=== PATIENT | female | born 1990 | race Hispanic/Latino ===

== ENCOUNTER 2022-06-05 04:56 | Inpatient (IN) | payer OTHER ==
[2022-06-05] MEDS ORDERED: Acetaminophen 500 MG TAB PO PRN (05:26)
[2022-06-05] MEDS ORDERED: Tranexamic Acid 1,000 MG/10 ML VIAL IVP PRN (05:26)
[2022-06-05] MEDS ORDERED: Methylergonovine 0.2 MG/ML VIAL IM PRN ×2 (05:26→16:05)
[2022-06-05] MEDS ORDERED: Carboprost 250 MCG/ML AMP IM PRN (05:26)
[2022-06-05] MEDS ORDERED: Misoprostol 200 MCG TAB PR PRN ×2 (05:26→16:05)
[2022-06-05] MEDS ORDERED: Promethazine HCl 25 MG/ML VIAL IM PRN ×2 (05:26→06:37)
[2022-06-05] MEDS ORDERED: Ondansetron PF 4 MG/2 ML Vial IVP PRN ×3 (05:26→16:05)
[2022-06-05] MEDS ORDERED: Lidocaine 1% (PF) 30 ML VIAL SC PRN (05:26)
[2022-06-05] MEDS ORDERED: hydrALAZINE 20 MG/ML VIAL SLOW IVP PRN ×2 (05:26→16:05)
[2022-06-05] MEDS ORDERED: Fentanyl 2 mcg/Bup 0.1% Cadd 100 ML ONE (05:50)
[2022-06-05 05:55] LABS: Hemoglobin 11.1 g/dL (12.0-15.5); Mean Corpuscular Hemoglobin 25.6 pg (27.0-33.0); Mean Platelet Volume 12.3 fl (7.4-10.4); Platelet Count 175 10x3/uL (150-450); RBC Distribution Width 14.1 % (11.5-14.5); Red Blood Cell (RBC) Count 4.34 10x6/uL (3.90-5.03); White Blood Cell (WBC) Count 8.8 10x3/uL (3.5-10.5)
[2022-06-05] MEDS ORDERED: Lactated Ringer's 1,000 ML IV SCH (06:00)
[2022-06-05] MEDS ORDERED: NS w/ Oxytocin 30 units 500 ML IV SCH ×2 (06:00→16:05)
[2022-06-05 06:06] VITALS: BMI 38.3
[2022-06-05 06:09] LABS: ALT (SGPT) 10 U/L (8-55); AST (SGOT) 12 U/L (5-34); Albumin 3.4 g/dL (3.5-5.0); Alkaline Phosphatase 210 U/L (40-110); Anion Gap 17 mmol/L (10-20); BUN (Urea Nitrogen) 13 mg/dL (7.0-18.7); Bilirubin, Total 0.3 mg/dL (0.2-1.2); Calc. Creatinine Clearance 156 mL/min (70-130); Calcium 8.8 mg/dL (7.8-10.44); Carbon Dioxide 17 mmol/L (22-29); Chloride 108 mmol/L (98-107); Estimated GFR 109; Globulin 2.9 g/dL (2.4-3.5); Glucose 98 mg/dL (70-105); Protein, Total 6.3 g/dL (6.0-8.3); Sodium 138 mmol/L (136-145)
[2022-06-05 06:26] LABS: Syphilis Antibody Nonreactive (Nonreactive); Syphilis Antibody Index 0.03 S/CO (<1.00 Non-Reactive)
[2022-06-05 06:27] LABS: HBSAg Index 0.14 S/CO (0-0.99); Hep B Surf Ag - L&D Non-Reactive S/CO (NonReactive)
[2022-06-05] MEDS ORDERED: diphenhydrAMINE 50 MG/ML VIAL IVP PRN (06:37)
[2022-06-05] MEDS ORDERED: Lactated Ringer's 500 ML IV PRN (06:37)
[2022-06-05] MEDS ORDERED: ePHEDrine Sulfate 50 MG/10 ML VIAL SLOW IVP PRN (06:37)
[2022-06-05] MEDS ORDERED: Naloxone HCl 0.4 mg/ml Vial IVP PRN ×2 (06:37)
[2022-06-05] MEDS ORDERED: Acetaminophen 325 MG TAB PO PRN (06:37)
[2022-06-05] MEDS ORDERED: Moisturizing Cream (Eucerin) 113 GM JAR TOP PRN (06:37)
[2022-06-05] MEDS ORDERED: Communication Order-Pharmacy FS SCH (06:45)
[2022-06-05] MEDS ORDERED: Fentanyl 2 mcg/Bupivacaine 0.1% Cassette 100 ML EPIDURAL SCH (06:45)
[2022-06-05] MEDS ORDERED: ePHEDrine Sulfate 50 MG/10 ML VIAL ONE (08:00)
[2022-06-05] MEDS ORDERED: Bupivacaine HCl 0.5%/Epinephrine 1:200,000/PF 30 ml Vial ONE (08:00)
[2022-06-05] MEDS ORDERED: Prenatal Vitamin 1 TAB PO SCH (09:00)
[2022-06-05] MEDS ORDERED: Azithromycin 500 MG VIAL ONE (11:41)
[2022-06-05] MEDS ORDERED: CEFAZOLIN 2 GM VIAL ONE (11:41)
[2022-06-05] MEDS ORDERED: Bicitra 30 ML UDCUP PO PRN (11:42)
[2022-06-05] MEDS ORDERED: Famotidine/PF 20 mg/2ml Vial SLOW IVP PRN (11:42)
[2022-06-05] MEDS ORDERED: Azithromycin 500 MG in Sodium Chloride 0.9% 250 ML 250 ML IVPB SCH (11:45)
[2022-06-05] MEDS ORDERED: Clindamycin/D5W 900 MG in Premix Bag 1 BAG IVPB SCH (11:45)
[2022-06-05] MEDS ORDERED: Clindamycin/D5W 900 mg/50 ml Premix Bag ONE (11:53)
[2022-06-05] MEDS ORDERED: Fentanyl 100 MCG/2 ML VIAL ONE (12:07)
[2022-06-05] MEDS ORDERED: Methylene Blue 50 MG/10 ML AMPUL ONE (12:12)
[2022-06-05 12:31] LABS: pH (Cord, venous) 7.267 (7.250-7.350)
[2022-06-05] MEDS ORDERED: Phenylephrine 10 MG/ML VIAL ONE (12:33)
[2022-06-05] MEDS ORDERED: Oxytocin 10 UNITS/ML VIAL ONE (12:33)
[2022-06-05] MEDS ORDERED: Ondansetron PF 4 MG/2 ML Vial ONE (12:33)
[2022-06-05] MEDS ORDERED: Dexamethasone 4 mg/ml Vial ONE (12:33)
[2022-06-05] MEDS ORDERED: HYDROcodone/Acetaminophen 5/325 mg Tablet PO PRN (16:05)
[2022-06-05] MEDS ORDERED: Lanolin Ointment 7 GM TUBE TOP PRN (16:05)
[2022-06-05] MEDS ORDERED: Bisacodyl 10 MG SUPP PR PRN (16:05)
[2022-06-05] MEDS ORDERED: Boostrix 0.5 ML (Tdap) VIAL (>/=7 yrs of age) IM ONE (16:05)
[2022-06-05] MEDS ORDERED: diphenhydrAMINE 25 MG CAP PO PRN (16:05)
[2022-06-05] MEDS ORDERED: Ibuprofen 800 MG TAB PO SCH (18:00)
[2022-06-05] MEDS: Ketorolac Tromethamine 30 MG/ML VIAL IVP PRN (19:53)
[2022-06-05] MEDS: Ferrous Sulfate 325 MG TAB PO SCH (21:08)
[2022-06-06 04:08] LABS: Hemoglobin 7.7 g/dL (12.0-15.5); Mean Corpuscular HGB CONC 32.4 g/dL (32.0-36.0); Mean Corpuscular Volume 80.4 fl (81.6-98.3); Mean Platelet Volume 12.3 fl (7.4-10.4); Platelet Count 136 10x3/uL (150-450); RBC Distribution Width 14.2 % (11.5-14.5); Red Blood Cell (RBC) Count 2.96 10x6/uL (3.90-5.03); White Blood Cell (WBC) Count 10.6 10x3/uL (3.5-10.5)
[2022-06-06] MEDS: Ketorolac Tromethamine 30 MG/ML VIAL IVP PRN (04:27)
[2022-06-06] MEDS: HYDROcodone/Acetaminophen 5/325 mg Tablet PO PRN ×2 (09:23→15:37)
[2022-06-06] MEDS: Simethicone Chewable 80 MG TAB PO PRN ×2 (09:23→15:30)
[2022-06-06] MEDS: Prenatal Vitamin 1 TAB PO SCH (09:23)
[2022-06-06] MEDS: Ferrous Sulfate 325 MG TAB PO SCH ×2 (09:26→21:32)
[2022-06-06 09:39] LABS: ALT (SGPT) 7 U/L (8-55); AST (SGOT) 19 U/L (5-34); Albumin 2.6 g/dL (3.5-5.0); Alkaline Phosphatase 129 U/L (40-110); Anion Gap 13 mmol/L (10-20); BUN (Urea Nitrogen) 10 mg/dL (7.0-18.7); Bilirubin, Total 0.4 mg/dL (0.2-1.2); Calc. Creatinine Clearance 156 mL/min (70-130); Calcium 8.4 mg/dL (7.8-10.44); Carbon Dioxide 22 mmol/L (22-29); Chloride 106 mmol/L (98-107); Estimated GFR 109; Globulin 2.7 g/dL (2.4-3.5); Glucose 112 mg/dL (70-105); Potassium 3.7 mmol/L (3.5-5.1); Protein, Total 5.3 g/dL (6.0-8.3); Sodium 137 mmol/L (136-145)
[2022-06-06] MEDS: Ibuprofen 800 MG TAB PO SCH ×2 (13:49→21:31)
[2022-06-06 15:21] LABS: Creatinine, Urine 108.4 mg/dL (47-110)
[2022-06-07] MEDS: Ibuprofen 800 MG TAB PO SCH (05:14)
[2022-06-07 05:17] LABS: Hemoglobin 7.2 g/dL (12.0-15.5); Mean Corpuscular HGB CONC 31.7 g/dL (32.0-36.0); Mean Corpuscular Hemoglobin 25.7 pg (27.0-33.0); Mean Corpuscular Volume 81.1 fl (81.6-98.3); Mean Platelet Volume 11.5 fl (7.4-10.4); Platelet Count 148 10x3/uL (150-450); RBC Distribution Width 14.4 % (11.5-14.5); White Blood Cell (WBC) Count 8.9 10x3/uL (3.5-10.5)
[2022-06-07] MEDS: Ferrous Sulfate 325 MG TAB PO SCH (08:15)
[2022-06-07] MEDS: Prenatal Vitamin 1 TAB PO SCH (08:17)
[2022-06-07 11:05] VITALS: BP 110/73; TEMP 98.5
== END 2022-06-07 12:36 | disposition home or self-care (01) | DRG 786 ==
LOC: CSHLD/OP 04:56 → CSHLD 05:49 → CSHPP 16:15
PROVIDERS: ADMIT Obstetrics & Gynecology; ATTEND Obstetrics & Gynecology
PROC: 10D00Z1 Extraction of Products of Conception, Low, Open Approach (ICD-10-PCS; principal; 2022-06-05)
PROC: 3E0334Z Introduction of Serum, Toxoid and Vaccine into Peripheral Vein, Percutaneous Approach (ICD-10-PCS; 2022-06-05)
DX: O42.02 Full-term premature rupture of membranes, onset of labor within 24 hours of rupture (principal); O99.42 Diseases of the circulatory system complicating childbirth; O72.1 Other immediate postpartum hemorrhage; O26.893 Other specified pregnancy related conditions, third trimester; Z67.41 Type O blood, Rh negative; Z3A.40 40 weeks gestation of pregnancy; Z37.0 Single live birth; O48.0 Post-term pregnancy; E66.9 Obesity, unspecified; O99.214 Obesity complicating childbirth; Z79.899 Other long term (current) drug therapy; O34.211 Maternal care for low transverse scar from previous cesarean delivery; Z88.1 Allergy status to other antibiotic agents; O76 Abnormality in fetal heart rate and rhythm complicating labor and delivery; I95.9 Hypotension, unspecified; O32.8XX0 Maternal care for other malpresentation of fetus, not applicable or unspecified
CPT/HCPCS: 36415; 51702; 80053; 82570; 82805; 84156; 85027; 85461; 86780; 86850; 86900; 86901; 87340; 88307; 90384; 96372; 99285; J0456; J1100; J1885; J2370; J2405; J2590; J3010; Q9968